=== PATIENT | female | born 1955 | race Caucasian/White ===

== ENCOUNTER 2020-08-25 09:05 | Outpatient (CLI) | payer OTHER | END 2020-08-25 09:37 | disposition home or self-care (01) | LOC: TOM 09:05 | PROVIDERS: ATTEND Surgery | DX: C19 Malignant neoplasm of rectosigmoid junction (principal); K62.5 Hemorrhage of anus and rectum | CPT/HCPCS: 71260; 74177; Q9965 ==

== ENCOUNTER 2020-09-01 07:15 | Inpatient (IN) | payer OTHER ==
[~2020-09-01] VITALS: Ht 165.1 cm; Wt 79.4 kg
[2020-09-01] MEDS ORDERED: NORVASC5 MG PO (09:20)
[2020-09-01] MEDS ORDERED: TOPROL XL25 M1 PO (09:20)
[2020-09-01] MEDS ORDERED: AVAPRO300 MG PO (09:20)
[2020-09-13] MEDS ORDERED: PERCOCET 5-3251 EACH PO (18:25)
== END 2020-09-13 18:46 | disposition home or self-care (01) | DRG 330 ==
LOC: SURG 09-09 05:47 → O/R 09-09 05:47 → SURH 09-09 07:15 → SURG 09-09 12:00 → SURH 09-09 13:00 → SURG 09-13 18:46
PROVIDERS: ADMIT Surgery; ATTEND Surgery
PROC: 0DTN0ZZ Resection of Sigmoid Colon, Open Approach (ICD-10-PCS; 2020-09-09)
PROC: 07BD0ZX Excision of Aortic Lymphatic, Open Approach, Diagnostic (ICD-10-PCS; 2020-09-09)
PROC: 0DJD8ZZ Inspection of Lower Intestinal Tract, Via Natural or Artificial Opening Endoscopic (ICD-10-PCS; 2020-09-09)
PROC: 3E0F7SF Introduction of Other Gas into Respiratory Tract, Via Natural or Artificial Opening (ICD-10-PCS; 2020-09-09)
PROC: 0DTP0ZZ Resection of Rectum, Open Approach (ICD-10-PCS; principal; 2020-09-09 13:00)
DX: C19 Malignant neoplasm of rectosigmoid junction (principal); K62.5 Hemorrhage of anus and rectum; D64.9 Anemia, unspecified; Z20.822 Contact with and (suspected) exposure to COVID-19

== ENCOUNTER 2021-04-20 11:37 | Emergency (ER) | payer OTHER ==
[~2021-04-20] VITALS: Ht 165.1 cm; Wt 68.0 kg
[~2021-04-20 11:37] MED LIST: AVAPRO300 MG PO; NORVASC5 MG PO; PERCOCET 5-3251 EACH PO; TOPROL XL25 M1 PO
[2021-04-20] MEDS ORDERED: ADULT LOW DOSE81 M1 PO (11:47)
[2021-04-20] MEDS ORDERED: ZOFRAN8 MG PO (11:48)
[2021-04-20] MEDS ORDERED: OMEPRAZOLE MAGN20 MG PO (11:48)
[2021-04-20] MEDS ORDERED: LEUCOVORIN CAL IJ (11:49)
[2021-04-20] MEDS ORDERED: OXALIPLATIN100 MG IV (11:49)
== END 2021-04-20 15:51 | disposition home or self-care (01) ==
LOC: ER 11:37
DX: T82.318A Breakdown (mechanical) of other vascular grafts, initial encounter (principal); Z85.038 Personal history of other malignant neoplasm of large intestine; I10 Essential (primary) hypertension

== ENCOUNTER 2021-04-27 07:46 | Outpatient (CLI) | payer OTHER ==
[~2021-04-27 07:46] MED LIST changes: +ADULT LOW DOSE81 M1 PO; +LEUCOVORIN CAL IJ; +OMEPRAZOLE MAGN20 MG PO; +OXALIPLATIN100 MG IV; +ZOFRAN8 MG PO
[2021-05-08] MEDS ORDERED: CANDESARTAN CILE8 MG PO (09:30)
[2021-05-08] MEDS ORDERED: ACID CONTROLLER20 MG PO (09:31)
== END 2021-04-27 08:01 | disposition home or self-care (01) ==
LOC: TOM 07:46
PROVIDERS: ATTEND Surgery
DX: R60.0 Localized edema (principal); T82.848A Pain due to vascular prosthetic devices, implants and grafts, initial encounter
CPT/HCPCS: 70492; 71260; A9579

== ENCOUNTER 2021-05-11 05:30 | Day surgery (SDC) | payer OTHER ==
[~2021-05-11 05:30] MED LIST changes: +ACID CONTROLLER20 MG PO; +CANDESARTAN CILE8 MG PO
[2021-05-11] MEDS ORDERED: ULTRAM50 MG PO (10:05)
== END 2021-05-11 10:45 | disposition home or self-care (01) ==
LOC: CIR.AMB 05:30
PROVIDERS: ATTEND Surgery
DX: T82.598A Other mechanical complication of other cardiac and vascular devices and implants, initial encounter (principal); C19 Malignant neoplasm of rectosigmoid junction; R59.0 Localized enlarged lymph nodes; I10 Essential (primary) hypertension; Z99.89 Dependence on other enabling machines and devices; Z92.21 Personal history of antineoplastic chemotherapy; K21.9 Gastro-esophageal reflux disease without esophagitis; Z79.82 Long term (current) use of aspirin